=== PATIENT | male | born 2000 | race Caucasian/White ===

== ENCOUNTER 2023-11-26 16:53 | Emergency (ER) | payer OTHER ==
[2023-11-26 16:59] VITALS: BP 127/80; PULSE 91; RESP 18; TEMP 98.4; BMI 27.6
[2023-11-26] MEDS ORDERED: ACETAMINOPHEN 500 MG TABLET (FP) ONE (18:06)
[2023-11-26] MEDS ORDERED: IBUPROFEN 400 MG TABLET (FP) PO ONE (18:06)
[2023-11-26] MEDS: ACETAMINOPHEN 500 MG TABLET (FP) PO ONE (18:07)
[2023-11-26] MEDS: IBUPROFEN 400 MG TABLET (FP) PO ONE (18:07)
== END 2023-11-26 18:15 | disposition home or self-care (01) ==
LOC: JERFT 16:53
DX: M54.50 Low back pain, unspecified (principal); X50.1XXA Overexertion from prolonged static or awkward postures, initial encounter
CPT/HCPCS: 99283-25